=== PATIENT | female | born 1940 | race Hispanic/Latino ===

== ENCOUNTER 2017-12-13 12:21 | Inpatient (IN) | payer MEDICARE, OTHER ==
[2017-12-13 12:30] VITALS: BMI 30.7
[2017-12-13] MEDS ORDERED: diltiaZEM IVPB 100mg in NS 100 ML IV PRN (13:06)
[2017-12-13 13:13] LABS: BASO # 0.03 K/mm3 (0.0-2.0); BASO % 0.3 % (0.0-3.0); EOS # 0.1 (0.0-0.7); EOS % 0.6 % (1.5-5.0); GRAN # 6.55 (1.4-6.5); GRAN % 61.8 % (50.0-68.0); HEMOGLOBIN 14.1 g/dL (12.0-16.0); LYMPH # 3.1 (1.2-3.4); LYMPH % 29.6 % (22.0-35.0); MEAN CELL VOLUME 88.7 fl (80.0-105.0); MEAN CORPUSCULAR HEMOGLOBIN 29.9 pg (25.0-35.0); MEAN CORPUSCULAR HGB CONC 33.7 g/dl (31.0-37.0); MEAN PLATELET VOLUME 10.2 fl (7.0-11.0); MONO # 0.8 (0.1-0.6); MONO % 7.7 % (1.0-6.0); RBC 4.71 10^6/uL (3.5-6.1); RED CELL DISTRIBUTION WIDTH 14.3 % (11.5-14.5); WHITE BLOOD COUNT 10.6 10^3/ul (4.5-11.0)
[2017-12-13 13:22] LABS: ALB/GLOB RATIO 1.2 (1.1-1.8); ALBUMIN 4.2 g/dL (3.0-4.8); ALT/SGPT 28 U/L (7-56); AST/SGOT 26 U/L (14-36); BLOOD UREA NITROGEN 21 mg/dL (7-21); CALCIUM 10.3 mg/dL (8.4-10.5); GFR AFRICAN-AMERICAN > 60; GFR NON-AFRICAN AMERICAN > 60
--- NOTE | 2017-12-13 13:24 | ED PDOC ---
Arrival/HPI - General Chief Complaint: Palpitations Time Seen by Provider: 12/13/17 12:22 Historian: Patient - History of Present Illness Narrative History of Present Illness (Text): 12/13/17 13:13 A 77 year old female, whose past medical history includes COPD, sent from Dr. Babb's office for tachycardia. Patient visited PMD for routine visit, and heart rate found to be 140BPM. Patient sent to the ER immediately for evaluation. Patient denies any chest pain, palpitations, dizziness, or any other complaints at this time. PMD: Dr. Babb Past Medical History - Provider Review Nursing Documentation Reviewed: Yes - Cardiac Hx Cardiac Disorders: Yes Hx Hypertension: Yes - Pulmonary Hx Respiratory Disorders: Yes Hx Bronchitis: Yes - Neurological Hx Neurological Disorder: No - HEENT Hx HEENT Disorder: No - Renal Hx Renal Disorder: No - Endocrine/Metabolic Hx Endocrine Disorders: No - Hematological/Oncological Hx Blood Disorders: No - Integumentary Hx Dermatological Disorder: No - Musculoskeletal/Rheumatological Hx Musculoskeletal Disorders: No - Gastrointestinal Hx Gastrointestinal Disorders: No - Genitourinary/Gynecological Hx Genitourinary Disorders: No - Psychiatric Hx Psychophysiologic Disorder: No Hx Substance Use: No - Surgical History Hx Hysterectomy: Yes Family/Social History - Physician Review Nursing Documentation Reviewed: Yes Family/Social History: No Known Family HX Smoking Status: Never Smoked Hx Alcohol Use: No Hx Substance Use: No Allergies/Home Meds Allergies/Adverse Reactions: Allergies No Known Allergies Allergy (Verified 12/13/17 12:30) Home Medications: Home Meds Medication Instructions Recorded Confirmed Umeclidinium Brm/Vilanterol Tr 1 puff INH DAILY 12/13/17 12/13/17 [Anoro Ellipta 62.5-25 Mcg INH] hydroCHLOROthiazide [Hydrodiuril] 25 mg PO DAILY 12/13/17 12/13/17 Review of Systems - Review of Systems Constitutional: absent: Fatigue, Fevers ENT: absent: Hearing Changes Respiratory: absent: SOB, Cough Cardiovascular: Other (tachycardia). absent: Chest Pain, Palpitations, Calf Pain, [place] Gastrointestinal: absent: Abdominal Pain, Nausea Neurological: absent: Dizziness Endocrine: absent: Diaphoresis, Polyuria Physical Exam - Physical Exam Narrative Physical Exam (Text): Head: Atraumatic. Normocephalic. Eyes: PERRL. EOMI. Conjunctivae are not pale. ENT: Mucous membranes are moist and intact. Oropharynx is clear and symmetric. Neck: Supple. Full ROM. No JVD. No lymphadenopathy. No thyromegaly. Cardiovascular: Tachycardic. Irregularly irregular. Systolic murmur. Pulmonary/Chest: No evidence of respiratory distress. Clear to auscultation bilaterally. No wheezing, rales or rhonchi. Abdominal: Soft and non-distended. There is no tenderness. No rebound, guarding, or rigidity. No organomegaly. Good bowel sounds. Back: No CVA tenderness. Rectal: no gross bleeding nted. Extremities: No edema. No cyanosis. No clubbing. Full range of motion in all extremities. No calf tenderness. Skin: Skin is warm and dry. No petechiae. No purpura. Neurological: Alert, awake, and oriented. Normal speech. Motor and sensory exam intact. Psychiatric: Good eye contact. Normal interaction, affect, and behavior. Vital Signs Reviewed: Yes Vital Signs Temp Pulse Pulse Resp BP Pulse Ox 12/13/17 18:15 100 H 17 143/71 95 12/13/17 15:01 133 H 20 154/75 H 95 12/13/17 15:00 106 H 12/13/17 13:38 139 H 152/95 H 12/13/17 13:19 139 H 16 152/41 H 95 12/13/17 13:05 119 H 105 H 18 135/95 H 95 12/13/17 12:56 136 H 160/78 H 12/13/17 12:40 98 F 12/13/17 12:36 144 H 18 160/89 H 99 Temperature: Afebrile Blood Pressure: Hypertensive Pulse: Irregular Respiratory Rate: Normal Appearance: Positive for: Well-Appearing, Comfortable Pain Distress: None Mental Status: Positive for: Alert and Oriented X 3 Medical Decision Making ED Course and Treatment: 12/13/17 13:16 Impression: 77 year old female with tachycardia noted at PMD office. Plan: -- EKG (2) -- Chest X-ray -- Labs -- Cardizem -- Cardizem IV drips -- Reassess and disposition Progress Notes: 12/13/17 13:20 Upon examination, patient is resting comfortably, and found to have narrow complex tachycardia on monitor but asymptomatic. Blood pressure at 160/90. Intial EKG reading reveals tachycardia, no clear p waves, possible atrial flutter. Cadrizem bolus was given to patient with some improvement to heart rate to 120BPM. Patient to be continued on Cardizem drip, and initiated Heparin for likely new onset of atrial fibrillation. Repeat EKG with persistent atrial fibrillation but improved rate. On re-exam, no chest pain or shortness of breath. Family and pmd updated with diagnosis and treatment plan. 12/13/17 13:23 Chest X-ray IMPRESSION: No active disease. Dictator: Piyush Alarcon MD Will admit for new onset atrial fibrillation. - Lab Interpretations Lab Results: 12/13/17 12:42 12/13/17 12:42 Lab Results 12/13/17 12:42: Sodium 139, Potassium 3.6, Chloride 97 L, Carbon Dioxide 30, Anion Gap 15, BUN 21, Creatinine 0.7, Est GFR ( Amer) > 60, Est GFR (Non- Af Amer) > 60, Random Glucose 105, Calcium 10.3, Total Bilirubin 0.6, AST 26, ALT 28, Alkaline Phosphatase 123, Lactate Dehydrogenase 429, Total Creatine Kinase 56, Troponin I < 0.01, NT-Pro-B Natriuret Pep 814 H, Total Protein 7.9, Albumin 4.2, Globulin 3.6, Albumin/Globulin Ratio 1.2 12/13/17 12:42: PT 11.9, INR 1.03, APTT 33.8 12/13/17 12:42: WBC 10.6, RBC 4.71, Hgb 14.1, Hct 41.8, MCV 88.7, MCH 29.9, MCHC 33.7, RDW 14.3, Plt Count 298, MPV 10.2, Gran % 61.8, Lymph % (Auto) 29.6, [place] % (Auto) 7.7 H, Eos % (Auto) 0.6 L, Baso % (Auto) 0.3, Gran # 6.55 H, Lymph # (Auto) 3.1, [place] # (Auto) 0.8 H, Eos # (Auto) 0.1, Baso # (Auto) 0.03 I have reviewed the lab results: Yes - RAD Interpretation Radiology Orders: 12/13/17 12:42 CHEST PORTABLE [RAD] Stat - Medication Orders Current Medication Orders: Heparin Sodium/Sodium Chloride (Heparin 35934 Units/250ml 1/2 Normal Saline) 25 ,000 units in 250 mls @ 15.513 mls/hr IV .Q16H7M PRN; Protocol; 18 UNITS/KG/HR PRN Reason: ADJUST RATE PER PROTOCOL Last Titration: 12/13/17 21:52 Dose: 15 units/kg/hr, 12.927 mls/hr Titration Intervention Document 12/13/17 21:52 KTR (Rec: 12/13/17 21:53 KTR [id number]) Titration Intake Container Volume 200 Titration Dosing Titration Dose 15 IV Rate 12.927 Intake/Decrease Started diltiaZEM IVPB 100mg in NS (Cardizem 100mg In Ns) 100 mls @ 10 mls/hr IV .Q10H PRN; Protocol; 10 MG/HR PRN Reason: PER MD Last Admin: 12/13/17 20:45 Dose: 10 mg/hr, 10 mls/hr eMAR Start Stop Document 12/13/17 20:45 KTR (Rec: 12/13/17 20:45 KTR [id number]) Intravenous Solution Start Date 12/13/17 Start Time 20:45 MAR Pulse Rate Document 12/13/17 20:45 KTR (Rec: 12/13/17 20:45 KTR [id number]) Pulse Rate Pulse Rate (60-90 beats/min) 145 Titration Intervention Document 12/13/17 20:45 KTR (Rec: 12/13/17 20:45 KTR [id number]) Titration Intake Waste Amount 0 Container Volume 100 Titration Dosing Titration Dose 10 IV Rate 10 Intake/Decrease Started Metoprolol Tartrate (Lopressor) 25 mg PO Q6 ERIBERTO Discontinued Medications Diltiazem HCl (Cardizem) 15 mg IVP ONCE ONE Stop: 12/13/17 12:44 Last Admin: 12/13/17 12:56 Dose: 15 mg IVP Administration Document 12/13/17 12:56 OCS (Rec: 12/13/17 12:56 OCS [id number]) Charges for Administration # of IVP Administrations 1 MAR Pulse and Blood Pressure Document 12/13/17 12:56 OCS (Rec: 12/13/17 12:56 OCS [id number]) Pulse Pulse Rate (60-90 beats/min) 136 Blood Pressure Blood Pressure (100/60-150/90 mm Hg) 160/78 Diltiazem HCl (Cardizem) 20 mg IVP STAT STA Stop: 12/13/17 13:29 Last Admin: 12/13/17 13:38 Dose: 20 mg IVP Administration Document 12/13/17 13:38 OCS (Rec: 12/13/17 13:38 OCS [id number]) Charges for Administration # of IVP Administrations 1 MAR Pulse and Blood Pressure Document 12/13/17 13:38 OCS (Rec: 12/13/17 13:38 OCS [id number]) Pulse Pulse Rate (60-90 beats/min) 139 Blood Pressure Blood Pressure (100/60-150/90 mm Hg) 152/95 Diltiazem HCl (Cardizem) 15 mg IVP ONCE ONE Stop: 12/13/17 20:26 Last Admin: 12/13/17 20:50 Dose: 15 mg Comments: given via cardizem drip IVP Administration Document 12/13/17 20:50 KTR (Rec: 12/13/17 20:50 KTR [id number]) Charges for Administration # of IVP Administrations 1 MAR Pulse and Blood Pressure Document 12/13/17 20:50 KTR (Rec: 12/13/17 20:50 KTR [id number]) Pulse Pulse Rate (60-90 beats/min) 145 Blood Pressure Blood Pressure (100/60-150/90 mm Hg) 147/88 Heparin Sodium (Porcine) (Heparin) 4,000 units IV ONCE ONE PRN Reason: Protocol Stop: 12/13/17 13:49 Last Admin: 12/13/17 14:04 Dose: 4,000 units eMAR Start Stop Document 12/13/17 14:04 OCS (Rec: 12/13/17 14:05 OCS [id number]) Intravenous Solution Start Date 12/13/17 Start Time 14:05 End Date 12/13/17 End time 14:07 Total Infusion Time 2 MAR aPTT Document 12/13/17 14:04 OCS (Rec: 12/13/17 14:05 OCS [id number]) aPTT aPTT (secs) 33.8 diltiaZEM IVPB 100mg in NS (Cardizem 100mg In Ns) 100 mls @ 5 mls/hr IV .Q20H PRN; Protocol; 5 MG/HR PRN Reason: PER Last Admin: 12/13/17 13:18 Dose: 5 mls/hr eMAR Start Stop Document 12/13/17 13:18 OCS (Rec: 12/13/17 13:18 OCS [id number]) Intravenous Solution Start Date 12/13/17 Start Time 13:18 Pneumococcal Polyvalent Vaccine (Pneumovax 23 Vaccine) 0.5 ml IM .ONCE ONE Stop: 12/13/17 22:50 - Scribe Statement The provider has reviewed the documentation as recorded by the Elvis Patino Provider Scribe Attestation: All medical record entries made by the Elvis were at my direction and personally dictated by me. I have reviewed the chart and agree that the record accurately reflects my personal performance of the history, physical exam, medical decision making, and the department course for this patient. I have also personally directed, reviewed, and agree with the discharge instructions and disposition. Disposition/Present on Arrival - Present on Arrival Any Indicators Present on Arrival: No History of DVT/PE: No History of Uncontrolled Diabetes: No Urinary Catheter: No History of Decub. Ulcer: No History Surgical Site Infection Following: None - Disposition Have Diagnosis and Disposition been Completed?: Yes Diagnosis: New onset atrial fibrillation Disposition: HOSPITALIZED Disposition Time: 14:00 Patient Plan: Admission, Telemetry Patient Problems: Current Active Problems Problem Status Onset New onset atrial fibrillation Acute Condition: SERIOUS
--- NOTE | 2017-12-13 13:25 | RAD ---
HISTORY: palpitations COMPARISON: 05/12/2017 FINDINGS: LUNGS: No active pulmonary disease. PLEURA: No significant pleural effusion identified, no pneumothorax apparent. CARDIOVASCULAR: Mild cardiomegaly OSSEOUS STRUCTURES: No significant abnormalities. VISUALIZED UPPER ABDOMEN: Normal. OTHER FINDINGS: None. IMPRESSION: No active disease.
[2017-12-13 13:30] LABS: INR 1.03 (0.93-1.08); PARTIAL THROMBOPLASTIN TIME 33.8 Seconds (25.1-36.5); PROTHROMBIN TIME 11.9 SECONDS (9.4-12.5)
[2017-12-13 13:34] LABS: B-TYPE NATRIURETIC PEPTIDE 814 pg/mL (0-450); TROPONIN I < 0.01 ng/mL
[2017-12-13] MEDS ORDERED: Heparin25000 units/250ml 1/2NS 25,000 UNITS/250 ML BAG IV PRN (13:48)
[2017-12-13 20:40] LABS: INR 1.09 (0.93-1.08); PROTHROMBIN TIME 12.4 SECONDS (9.4-12.5)
[2017-12-13 20:41] LABS: PARTIAL THROMBOPLASTIN TIME 189.6 Seconds (25.1-36.5)
[2017-12-13] MEDS: diltiaZEM IVPB 100mg in NS 100 ML IV PRN (20:45)
[2017-12-13] MEDS ORDERED: Pneumococcal 23-Valent Vaccine IM ONE (22:49)
[2017-12-14 05:21] LABS: HEMOGLOBIN 12.9 g/dL (12.0-16.0); MEAN CORPUSCULAR HEMOGLOBIN 29.5 pg (25.0-35.0); MEAN CORPUSCULAR HGB CONC 32.7 g/dl (31.0-37.0); MEAN PLATELET VOLUME 10.8 fl (7.0-11.0); RBC 4.38 10^6/uL (3.5-6.1); RED CELL DISTRIBUTION WIDTH 14.7 % (11.5-14.5); WHITE BLOOD COUNT 10.3 10^3/ul (4.5-11.0)
[2017-12-14] MEDS: diltiaZEM IVPB 100mg in NS 100 ML IV PRN (06:43)
--- NOTE | 2017-12-14 07:33 | CARD ---
APPROVED REPORT EKG Measurement Heart [id number] MS P87 [id number] <Conclusion> Atrial flutter with variable AV block with premature ventricular or aberrantly conducted complexes Left axis deviation ST & T wave abnormality, consider lateral ischemia Abnormal ECG
--- NOTE | 2017-12-14 07:35 | CARD ---
APPROVED REPORT EKG Measurement Heart [id number] AL 88P [id number] <Conclusion> Atrial flutter with 2:[address] abnormality, possible inferior subendocardial injury Abnormal ECG
[2017-12-14] MEDS ORDERED: diltiaZEM IVPB 100mg in NS 100 ML IV PRN (12:00)
--- NOTE | 2017-12-14 14:21 | CON ---
DATE: 12/14/2017 INDICATIONS: Atrial fibrillation with rapid ventricular response. HISTORY OF PRESENT ILLNESS: This is a 77-year-old woman admitted to the hospital yesterday after she complained of high blood pressure and rapid heart beat. She was evaluated by Dr. Babb. He sent her to the emergency room with atrial fibrillation with rapid ventricular response. She was treated with IV diltiazem and metoprolol. Her heart rate settled down. She is on telemetry now with atrial fibrillation in the 80s and without symptoms at the moment. There was no chest pain, shortness of breath, orthopnea, PND, syncope, presyncope, lightheadedness, dizziness, or vertigo. There was no fever, chills, cough, sputum production or hemoptysis. There was no abdominal pain, nausea, vomiting, diarrhea, constipation or melena. PAST MEDICAL HISTORY: Notable for hypertension and chronic bronchitis. There was no history of cardiac problems such as rheumatic fever, myocardial infarction, angina, congestive heart failure, prior arrhythmia. There is no history of diabetes, hypertension, stroke, TIA, hyperlipidemia or gout. MEDICATIONS: At the time of admission include Anoro and hydrochlorothiazide. ALLERGIES: THERE ARE NO KNOWN MEDICATION ALLERGIES. SOCIAL HISTORY: She lives at home. She is ambulatory. She does not smoke. She does not drink alcohol significantly except for an occasional glass of wine. FAMILY HISTORY: Noncontributory. REVIEW OF SYSTEMS: Ten-point review of systems otherwise unremarkable except as noted above. PHYSICAL EXAMINATION GENERAL: She is a well-developed woman, lying in bed on telemetry, in no acute distress. VITAL SIGNS: She is in atrial fibrillation 76 beats per minute, afebrile, blood pressure 130/70, respirations 17-20, O2 sat 96%-97% on room air. HEENT: Reveals no neck vein distention, thyromegaly or carotid bruits. Mucous membranes are moist. Conjunctivae pink. NECK: Supple. LUNGS: Lung underwood scattered rhonchi. HEART: Revealed an irregular rhythm. Normal first and second heart sounds. ABDOMEN: Soft. Bowel sounds present. No mass, organomegaly, tenderness, rebound, guarding, CVA tenderness or palpable abdominal aortic aneurysm. EXTREMITIES: Revealed no cyanosis, clubbing or edema. NEUROLOGIC: She was awake, alert and oriented. SKIN: Warm and dry. No rash or cellulitis. PSYCHIATRIC: Normal as to mood and affect. LABORATORY AND IMAGING: EKG demonstrates atrial fibrillation with rapid ventricular response. There is poor R-wave progression. Mild nonspecific ST-wave changes. A chest x-ray report is no active disease. CBC is unremarkable. PT/INR, PTT initially unremarkable. PTT 78.2 on heparin. Comprehensive metabolic panel unremarkable. Two troponins negative. BNP 814, TSH 1.2. IMPRESSION: Meliza Kearns is a 77-year-old woman with new onset atrial fibrillation with rapid ventricular response. PLAN: At this time, she is on IV Cardizem. I will attempt to switch her to p.o. metoprolol. She is on IV heparin. I will switch to Eliquis. Her CHADS score is approximately 3. I will order an echocardiogram. I will arrange for an outpatient nuclear stress test. She can be out of bed. We will check stool for occult blood. I will follow along with you. I will make additional recommendations based on her clinical course. Jacinto London MD [facility]
--- NOTE | 2017-12-15 07:51 | HP ---
DATE OF EXAM: 12/14/2017 CHIEF COMPLAINT AND HISTORY OF PRESENT ILLNESS: This is a 77-year-old female, who is coming into the hospital with complaints of palpitations. She has a past medical history of COPD. She was sent by Dr. Babb, who is the primary doctor because of elevated heart rate in the ER. The patient was found to have new onset atrial fibrillation with heart rate in the 140s. The patient was admitted to the hospital for further evaluation. She says she was not feeling well, was having palpitations when she went to see Dr. Babb. The patient had improvement of her heart rate. She has no complaints of any chest pain. No shortness of breath. No nausea. No vomiting. No fever, chills. No headaches. No dysuria, frequency or nocturia. REVIEW OF SYMPTOMS: All other review of symptoms are within normal limits except what was mentioned. ALLERGIES: NO KNOWN DRUG ALLERGIES. HOME MEDICATIONS: She is on Anoro Ellipta and hydrochlorothiazide. PAST MEDICAL HISTORY: Hypertension, bronchitis. SOCIAL HISTORY: She does not smoke, drink or use drugs. She does occasionally drink socially. FAMILY HISTORY: Noncontributory. PHYSICAL EXAMINATION: VITAL SIGNS: Temperature is 98.1, pulse of 67, blood pressure is 134/67, respirations 20, O2 saturation 97%. Height is 5 feet 6. Weight is 198 pounds. BMI is 32. GENERAL: The patient lying in bed, uncomfortable, and in no acute distress. HEENT: Atraumatic and normocephalic. Anicteric sclerae. Moist mucosa. [place] conjunctivae. No oral lesions. NECK: No JVD, anterior and posterior adenopathy, thyromegaly, or bruits. CARDIOVASCULAR: S1 and S2, irregular. No murmur, rubs, or gallop. LUNGS: Clear to auscultation bilaterally. No wheezes, rales, or rhonchi. ABDOMEN: Bowel sounds are positive. Soft, nontender and nondistended. No hepatosplenomegaly. No rebound and no guarding EXTREMITIES: No cyanosis, clubbing, or edema. NEUROLOGIC: No facial asymmetry. Tongue is midline. No uvula deviation. Power is 5/5 upper extremity and lower extremity. Sensation intact in upper extremity and lower extremity. PSYCHIATRIC: She is awake, alert and oriented x3. No anxiety or depression. She has normal affect. GENITOURINARY: No CVA tenderness. VASCULAR: 2+ pulses in the carotid pulses and pedal pulses. SKIN: No erythema or nodules SPINE: Shows normal curvature. LABORATORY DATA: White count of 10.6, hemoglobin of 14.1. Creatinine is 0.7. TSH is 1.2. . Chest x-ray done shows no infiltrates. EKG done shows heart rate at 138 with atrial flutter, 2:1 conduction. ASSESSMENT: 1. Atrial flutter/atrial fibrillation. 2. Hypertension. 3. Chronic obstructive pulmonary disease. PLAN: The patient is going to be admitted to the hospital. She was given Cardizem because of her atrial fibrillation with rapid ratio. Her heart rate was elevated according to the EKG and telemetry monitoring. The patient was started on anticoagulation with Eliquis. The patient was also placed on metoprolol. She was seen by Dr. London this morning. She is placed on a heart-healthy diet. She had two troponins, which were negative. Thyroid is negative. We will continue to follow and await for the input from Cardiology. Black Pearl MD
--- NOTE | 2017-12-15 08:31 | CP.PCM.PN ---
Subjective - Date & Time of Evaluation Date of Evaluation: 12/15/17 Time of Evaluation: 07:00 - Subjective Subjective: Stable on 2R. No CP or SOB. V/S noted. AF 70 -80's at rest but ~130's with ambulation. PE: Lungs: clear Cor.: irreg S1S2 Abd.: soft Ext.: no edema Neuro.: alert Echo: Nl LV fx., mild MR and TR. See full report Objective - Vital Signs/Intake and Output Vital Signs (last 24 hours): Temp Pulse Resp BP Pulse Ox 97.8 F 72 18 141/64 97 12/15/17 06:00 12/15/17 06:00 12/15/17 06:00 12/15/17 06:00 12/15/17 06:00 Intake and Output: 12/15/17 12/15/17 06:59 18:59 Intake Total 540 Balance 540 - Medications Medications: Current Medications Apixaban (Eliquis) 5 mg PO BID ERIBERTO PRN Reason: Protocol Last Admin: 12/14/17 18:04 Dose: 5 mg Metoprolol Tartrate (Lopressor) 75 mg PO BID ERIBERTO - Labs Labs: 12/14/17 04:35 PT 12.4 SECONDS (9.4-12.5) 12/13/17 20:11 INR 1.09 (0.93-1.08) H 12/13/17 20:11 APTT 33.3 Seconds (25.1-36.5) 12/14/17 10:10 Assessment and Plan - Assessment and Plan (Free Text) Assessment: AF with RVR HBP Chronic Bronchitis Plan: Increase metoprolol 75 BID OOB. Ambulate ad ivan. Monitor VR. Nuclear stress test as out-pt next week. Eliquis.
--- NOTE | 2017-12-15 09:13 | CARD ---
APPROVED REPORT EXAM: Two-dimensional and M-mode echocardiogram with Doppler and color Doppler. Other Information Quality : AverageRhythm : INDICATION AF, HBP 2D DIMENSIONS Left Atrium (2D)4.1 (1.6-4.0cm)IVSd1.1 (0.7-1.1cm) LVDd4.5 (3.9-5.9cm)PWd1.2 (0.7-1.1cm) LVDs2.7 (2.5-4.0cm)FS (%) 40.6 % LVEF (%)71.0 (>50%) M-Mode DIMENSIONS Aortic Root3.20 (2.2-3.7cm)Aortic Cusp Exc.1.70 (1.5-2.0cm) Aortic Valve AoV Peak Wlitvlca502.0cm/Iza Peak GR.10mmHg Mitral Valve MV E Ngcxkezw601.0cm/sMV A Ylmnqzus31.6cm/sE/A ratio1.6 TDI Lateral E' Peak V17.40cm/sMedial E' Peak V12.60cm/sE/Lateral E'6.3 E/Medial E'8.7 Pulmonary Valve PV Peak Wlzuazrl78.1cm/sPV Peak Grad.2mmHg Tricuspid Valve TR Peak Dymwdour020hk/sRAP CQIIAZVL43btJxSG Peak Gr.30mmHg [id number] LEFT VENTRICLE The left ventricle is normal size. There is normal left ventricular wall thickness. The left ventricular function is normal. The left ventricular ejection fraction is within the normal range. There is normal LV segmental wall motion. RIGHT VENTRICLE The right ventricle is normal size. ATRIA The left atrium is mildly dilated. The right atrium size is normal. The interatrial septum is intact with no evidence for an atrial septal defect. AORTIC VALVE The aortic valve is normal in structure. MITRAL VALVE The mitral valve is normal in structure. Mitral regurgitation is mild. TRICUSPID VALVE The tricuspid valve is normal in structure. There is mild tricuspid regurgitation. PULMONIC VALVE The pulmonic valve is not well visualized. GREAT VESSELS The aortic root is normal in size. PERICARDIAL EFFUSION There is no pericardial effusion. <Conclusion> The left ventricle is normal size. There is normal left ventricular wall thickness. The left ventricular function is normal. Mitral regurgitation is mild. There is mild tricuspid regurgitation.
--- NOTE | 2017-12-15 17:41 | PN ---
DATE: SUBJECTIVE: The patient is a 77-year-old [place] female, seen and examined, lying in bed, seems to be comfortable, not in any distress. No nausea or vomiting. No diarrhea. Eating and tolerating. OBJECTIVE: VITAL SIGNS: She is afebrile, pulse 80, respirations 18, blood pressure 138/74. LUNGS: Bilateral good airflow. No rhonchi or crackle. HEART: S1 and S2 audible. ABDOMEN: Soft. Nontender. No rebound. No guarding. NEUROLOGIC: Patient is awake, alert, oriented, communicative. EXTREMITIES: Bilateral legs, no edema. LABORATORY DATA: Two sets of troponins are negative. ASSESSMENT: 1. Atrial fibrillation. 2. Hypertension. 3. History of chronic obstructive pulmonary disease. PLAN: Currently, the patient is on Eliquis and metoprolol, we will continue that. We will follow up her CBC and CMP in the a.m. If she is stable, cleared from Cardiology point of view, she can be discharged in the a.m. Sundar Marx MD
[2017-12-16 00:30] VITALS: RESP 18
[2017-12-16 06:39] VITALS: TEMP 98; O2SAT 96
[2017-12-16 07:53] LABS: BASO # 0.04 K/mm3 (0.0-2.0); BASO % 0.4 % (0.0-3.0); EOS # 0.1 (0.0-0.7); EOS % 1.5 % (1.5-5.0); GRAN # 5.62 (1.4-6.5); GRAN % 62.1 % (50.0-68.0); HEMOGLOBIN 12.1 g/dL (12.0-16.0); LYMPH # 2.5 (1.2-3.4); LYMPH % 27.2 % (22.0-35.0); MEAN CORPUSCULAR HEMOGLOBIN 29.4 pg (25.0-35.0); MEAN CORPUSCULAR HGB CONC 32.7 g/dl (31.0-37.0); MEAN PLATELET VOLUME 11.1 fl (7.0-11.0); MONO # 0.8 (0.1-0.6); MONO % 8.8 % (1.0-6.0); RBC 4.11 10^6/uL (3.5-6.1); RED CELL DISTRIBUTION WIDTH 14.6 % (11.5-14.5); WHITE BLOOD COUNT 9.1 10^3/ul (4.5-11.0)
--- NOTE | 2017-12-16 08:04 | CP.PCM.PN ---
Subjective - Date & Time of Evaluation Date of Evaluation: 12/16/17 Time of Evaluation: 07:00 - Subjective Subjective: Stable on 2R. No CP or SOB. She converted to RSR last night. V/S noted. RSR PE: Lungs: clear Cor.: irreg S1S2 Abd.: soft Ext.: no edema Neuro.: alert Echo: Nl LV fx., mild MR and TR. See full report Labs noted. CBC OK. Stool for OB: neg Objective - Vital Signs/Intake and Output Vital Signs (last 24 hours): Temp Pulse Resp BP Pulse Ox 98.0 F 79 18 126/71 96 12/16/17 06:00 12/16/17 06:00 12/16/17 06:00 12/16/17 06:00 12/16/17 06:00 Intake and Output: 12/16/17 12/16/17 06:59 18:59 Intake Total 120 Balance 120 - Medications Medications: Current Medications Apixaban (Eliquis) 5 mg PO BID ERIBERTO PRN Reason: Protocol Last Admin: 12/15/17 17:39 Dose: 5 mg Metoprolol Tartrate (Lopressor) 75 mg PO BID [facility] Last Admin: 12/15/17 17:39 Dose: 75 mg - Labs Labs: 12/16/17 07:00 PT 12.4 SECONDS (9.4-12.5) 12/13/17 20:11 INR 1.09 (0.93-1.08) H 12/13/17 20:11 APTT 33.3 Seconds (25.1-36.5) 12/14/17 10:10 Assessment and Plan - Assessment and Plan (Free Text) Assessment: AF with RVR > RSR HBP Chronic Bronchitis Plan: OK for D/C home. D/C cardiac meds: metoprolol tartrate 75 BID, Eliquis 5 BID OOB I will arrange a nuclear stress test as out-pt this week.
[2017-12-16 08:18] LABS: ALB/GLOB RATIO 1.3 (1.1-1.8); ALBUMIN 3.9 g/dL (3.0-4.8); ALT/SGPT 30 U/L (7-56); AST/SGOT 26 U/L (14-36); BLOOD UREA NITROGEN 18 mg/dL (7-21); CALCIUM 9.1 mg/dL (8.4-10.5); GFR AFRICAN-AMERICAN > 60; GFR NON-AFRICAN AMERICAN > 60
[2017-12-16 13:13] VITALS: BP 149/76; PULSE 73
--- NOTE | 2017-12-17 10:24 | DS ---
HISTORY OF PRESENT ILLNESS: The patient is a 77-year-old, seen and examined, sitting in chair, seems to be comfortable, came to emergency room on 12/13/2017. Patient came to emergency room because of palpitation. She has past medical history significant for COPD. She went to see Dr. Babb, who did EKG, was found to have tachycardia. So, she was sent to emergency room, was found to have AFib, has been on beta-julio c, seems to be doing well, cleared by Cardiology. PHYSICAL EXAMINATION: On examination today; GENERAL: She is awake, alert, oriented and communicative. VITAL SIGNS: She is afebrile, pulse 73, respirations 18, blood pressure 149/76. LUNGS: Bilateral good airflow. No rhonchi or crackles. HEART: S1, S2 audible. ABDOMEN: Soft, nontender. No rebound, no guarding. NEUROLOGIC: Patient is awake, alert, oriented and communicative. LABORATORY DATA: WBC 9.1, hemoglobin 12, hematocrit 37, platelets 247. Chemistry: Sodium 140, potassium 3.9, chloride 102, CO2 of 28, BUN , creatinine 0.7. Blood sugar 103. LFTs are within normal limits. ASSESSMENT: 1. New onset of atrial fibrillation. 2. Chronic obstructive pulmonary disease. 3. History of hypertension. PLAN: Patient is being discharged home on metoprolol 75 twice a day, Eliquis 5 mg twice a day and she will follow with Dr. London and will have stress test done as outpatient. Sundar Marx MD
== END 2017-12-16 13:33 | disposition home or self-care (01) | DRG 310 ==
LOC: ED 12:21 → ERH 13:47 → 3RSO 18:57
PROVIDERS: ADMIT Internal Medicine Nephrology; ATTEND Internal Medicine Nephrology
DX: I48.91 Unspecified atrial fibrillation (principal); I48.92 Unspecified atrial flutter; I10 Essential (primary) hypertension; J44.9 Chronic obstructive pulmonary disease, unspecified; Z90.710 Acquired absence of both cervix and uterus; R00.0 Tachycardia, unspecified; Z79.899 Other long term (current) drug therapy

== ENCOUNTER 2018-09-04 10:14 | Outpatient (CLI) | payer MEDICARE | END 2018-09-04 10:15 | disposition home or self-care (01) | LOC: RAD 10:14 | DX: Z12.31 Encounter for screening mammogram for malignant neoplasm of breast (principal) ==